=== PATIENT | male | born 1995 | race American Indian/Alaskan Native ===

== ENCOUNTER 2016-11-25 22:52 | Emergency (ER) | payer BC, OTHER ==
[2016-11-25 23:07] VITALS: BP 131/80
--- NOTE | 2016-11-25 23:15 | EDM.PDOC ---
ED HPI Trauma - General Chief Complaint: Lower Extremity Injury/Pain Stated Complaint: SHARP STABBING PAIN IN RIGHT HEEL Time Seen by Provider: 11/25/16 23:05 Source: Reports: Patient History Limitations: Reports: No limitations - History of Present Illness INITIAL COMMENTS - FREE TEXT/NARRATIVE: c/o pain to right foot since waking from nap today at 2pm, denied any injury to foot or ankle. Walking in new boots yesterday without socks. Walked in sandles earlier today. No swelling or open areas. Has not tried anything for pain. Occurred When: this afternoon Occurred Where: home Method of Injury: other (none) Pain/Injury Location: Reports: lower extremity, right Associated Symptoms: Reports: no other symptoms Allergies/ADRs: Allergies Penicillins Allergy (Verified 11/25/16 23:02) Swelling Home Medications: Ambulatory Orders . [No Known Home Meds] 08/13/13 [Confirmed 11/25/16] Past Medical History - Past Health History Medical/Surgical History: Denies Medical/Surgical History HEENT History: Reports: None Cardiovascular History: Reports: None Respiratory History: Reports: None Gastrointestinal History: Reports: None Genitourinary History: Reports: None Musculoskeletal History: Reports: None Neurological History: Reports: None Psychiatric History: Reports: None Endocrine/Metabolic History: Reports: None Hematologic History: Reports: None Immunologic History: Reports: None Oncologic (Cancer) History: Reports: None Dermatologic History: Reports: None Social & Family History - Tobacco Use Smoking Status *Q: Light Tobacco Smoker Years of Tobacco use: 2 Packs/Tins Daily: 0.2 - Caffeine Use Caffeine Use: Reports: Coffee, Energy drinks, Soda, Tea - Recreational Drug Use Recreational Drug Use: Yes Recreational Drug Type: Reports: Marijuana/Hashish Recreational Drug Use Frequency: Socially Review of Systems - Review of Systems Review Of Systems: ROS reveals no pertinent complaints other than HPI. Trauma Exam - Physical Exam Exam: See Below Exam Limited By: No limitations General Appearance: Reports: alert, no apparent distress Head: Reports: atraumatic, normocephalic Ears: Reports: normal external exam Nose: Reports: normal inspection Throat/Mouth: Reports: Normal inspection, Normal voice Neck: Reports: full range of motion Respiratory Exam: Reports: no respiratory distress, normal breath sounds Cardiovascular: Reports: normal peripheral pulses, regular rate, rhythm, no edema Extremities: Reports: no evidence of injury, normal range of motion, pain with movement (inversion lateral malleolus) Neurologic: Reports: no motor/sensory deficits, alert Skin: Reports: Normal color, Warm/dry Course - Vital Signs Last Recorded V/S: Last Vital Signs Temp 96.8 F 11/25/16 23:03 Pulse 98 11/25/16 23:03 Resp 16 11/25/16 23:03 BP 131/80 11/25/16 23:03 Pulse Ox 100 11/25/16 23:03 Departure - Departure Time of Disposition: 23:10 Disposition: Home, Self-Care 01 Condition: good Clinical Impression: Foot pain, right Instructions: Foot Sprain Forms: ED Department Discharge Additional Instructions: increase fluids solid boot or shoe darinel wrap for comfort alternate tylenol and ibuprofen every 4-6 hours as needed for discomfort follow up in clinic if continued pain greater than one week
== END 2016-11-25 23:17 | disposition home or self-care (01) ==
LOC: DL.ED 22:52
DX: M79.671 Pain in right foot (principal); F17.210 Nicotine dependence, cigarettes, uncomplicated; Z88.0 Allergy status to penicillin
CPT/HCPCS: 99282; 99283

== ENCOUNTER 2017-04-20 20:07 | Emergency (ER) | payer SELFPAY ==
[2017-04-20 20:47] VITALS: BP 130/84
[2017-04-20] MEDS ORDERED: Ketorolac 30 MG/ML SDV IM ONE (21:49)
[2017-04-20] MEDS ORDERED: Cyclobenzaprine 10 MG Tab PO ONE (21:49)
--- NOTE | 2017-04-20 21:54 | EDM.PDOC ---
ED HPI GENERAL MEDICAL PROBLEM - General Chief Complaint: Back Pain or Injury Stated Complaint: BACK/SIDE SEVERE PAINS, [id number] Time Seen by Provider: 04/20/17 20:45 Source of Information: Reports: Patient History Limitations: Reports: No Limitations - History of Present Illness INITIAL COMMENTS - FREE TEXT/NARRATIVE: c/o low back pain radiating to right buttock. Noticed on awakening this am. States laid in bed all day. Has not tried anything for pain. Denied hx of back problems, no injury. No change in activity recently Onset: Today Duration: Constant Location: Reports: Back Quality: Reports: Ache, Burning Severity: Moderate Improves with: Reports: Rest Worsens with: Reports: Movement Associated Symptoms: Reports: No Other Symptoms Treatments BOTTOM TURNER: Reports: Other (see below) Other Treatments BOTTOM TURNER: states none Right Flank Pain Score (Numeric/FACES): 7 - Related Data Allergies Allergy/AdvReac Type Severity Reaction Status Date / Time Penicillins Allergy Swelling Verified 04/20/17 20:47 Home Meds: Home Meds . [No Known Home Meds] 08/13/13 [History] Past Medical History - Past Health History Medical/Surgical History: Denies Medical/Surgical History HEENT History: Reports: None Cardiovascular History: Reports: None Respiratory History: Reports: None Gastrointestinal History: Reports: None Genitourinary History: Reports: None Musculoskeletal History: Reports: None Neurological History: Reports: None Psychiatric History: Reports: None Endocrine/Metabolic History: Reports: None Hematologic History: Reports: None Immunologic History: Reports: None Oncologic (Cancer) History: Reports: None Dermatologic History: Reports: None Social & Family History - Family History Family Medical History: Noncontributory - Tobacco Use Smoking Status *Q: Light Tobacco Smoker Years of Tobacco use: 4 Packs/Tins Daily: 0.1 - Caffeine Use Caffeine Use: Reports: Coffee, Energy Drinks, Soda, Tea - Recreational Drug Use Recreational Drug Use: Yes Recreational Drug Type: Reports: Marijuana/Hashish Recreational Drug Use Frequency: Socially ED ROS GENERAL - Review of Systems Review Of Systems: See Below Constitutional: Reports: No Symptoms HEENT: Reports: No Symptoms Respiratory: Reports: No Symptoms GI/Abdominal: Reports: No Symptoms : Reports: No Symptoms Musculoskeletal: Reports: Back Pain. Denies: Leg Pain Skin: Reports: No Symptoms Neurological: Reports: No Symptoms ED EXAM,LOWER BACK PAIN/INJURY - Physical Exam Exam: See Below Exam Limited By: No Limitations General Appearance: Alert, Mild Distress Eye Exam: Bilateral Eye: EOMI Ears: Normal External Exam, Normal TMs Throat/Mouth: Normal Inspection, Normal Lips, Normal Teeth Head: Atraumatic, Normocephalic Neck: Normal Inspection Respiratory/Chest: No Respiratory Distress, Lungs Clear, Normal Breath Sounds Cardiovascular: Normal Peripheral Pulses, Regular Rate, Rhythm GI/Abdominal: Normal Bowel Sounds, Non-Tender Back Exam: Paraspinal Tenderness (right lower), Other (Pain with standing, radiation to buttock increased when attemmpting to statnd upright). No: CVA Tenderness (L), CVA Tenderness (R), Vertebral Tenderness Extremities: Normal Inspection, Normal Range of Motion Neurological: Alert, No Motor/Sensory Deficits, Oriented x 3, Straight Leg Raise (R). No: Saddle Anesthesia Psychiatric: Normal Affect, Normal Mood Skin Exam: Warm, Dry, Intact, Normal Color Course - Vital Signs Last Recorded V/S: Last Vital Signs Temp 99.6 F 04/20/17 20:44 Pulse 90 04/20/17 20:44 Resp 18 04/20/17 20:44 BP 130/84 04/20/17 20:44 Pulse Ox 99 04/20/17 20:44 - Orders/Labs/Meds Labs: Laboratory Tests 04/20/17 Range/Units 20:40 Urine Color Yellow (YELLOW) Urine Appearance Slightly cloudy (CLEAR) Urine pH 6.0 (5.0-9.0) Ur Specific [place] 1.020 (1.005-1.030) Urine Protein Negative (NEGATIVE) Urine Glucose (UA) Negative (NEGATIVE) Urine Ketones Negative (NEGATIVE) Urine Occult Blood Negative (NEGATIVE) Urine Nitrite Negative (NEGATIVE) Urine Bilirubin Negative (NEGATIVE) Urine Urobilinogen 0.2 (0.2-1.0) mg/dL Ur Leukocyte Esterase Trace H (NEGATIVE) Urine RBC 0-5 /HPF Urine WBC 20-30 H (0-5/HPF) /HPF Ur Epithelial Cells Few /HPF Urine Bacteria Few (0-FEW/HPF) /HPF Meds: Medications Discontinued Medications Generic Name Dose Route Start Last Admin Trade Name Freq PRN Reason Stop Dose Admin Cyclobenzaprine HCl 10 mg 04/20/17 21:49 04/20/17 21:54 Flexeril PO 04/20/17 21:50 10 mg ONETIME ONE Administration Ketorolac Tromethamine 30 mg 04/20/17 21:49 04/20/17 21:54 Toradol IM 04/20/17 21:50 30 mg ONETIME ONE Administration Departure - Departure Time of Disposition: 21:54 Disposition: Home, Self-Care 01 Condition: Good Clinical Impression: Back pain Qualifiers: Back pain location: low back pain Chronicity: acute Back pain laterality: right Sciatica presence: with sciatica Sciatica laterality: sciatica of right side Qualified Code(s): M54.41 - Lumbago with sciatica, right side - Discharge Information Instructions: Back Pain, Adult, [id number] Referrals: PCP,None [Primary Care Provider] - Forms: ED Department Discharge Additional Instructions: Ibuprofen 600mg every 6 hours as needed for back pain flexeril 10mg one every 8 hours as needed for back spasm clinic follow up if not improving ice to low bck area 15minutes every 3 hours
== END 2017-04-20 22:27 | disposition home or self-care (01) ==
LOC: DL.ED 20:07
DX: M54.41 Lumbago with sciatica, right side (principal); F17.210 Nicotine dependence, cigarettes, uncomplicated; Z88.0 Allergy status to penicillin
CPT/HCPCS: 81001; 96372; 99283; A9270; J1885

== ENCOUNTER 2017-09-21 17:16 | Emergency (ER) | payer OTHER ==
[2017-09-21 17:29] VITALS: BP 141/80
[2017-09-21] MEDS ORDERED: Sodium Chloride 0.9% 10 ML Syringe FLUSH PRN (17:43)
[2017-09-21] MEDS ORDERED: Lidocaine 1% 30 ML SDV INJECT ONE (17:44)
[2017-09-21] MEDS ORDERED: Vancomycin 1.5 GM in Sodium Chloride 0.9% 500 ML IV ONE (17:45)
[2017-09-21] MEDS ORDERED: diphenhydrAMINE 50 MG/ML SDV IVPUSH ONE (17:46)
[2017-09-21] MEDS ORDERED: HYDROmorphone 1 MG/ML Syringe IVPUSH ONE (17:46)
[2017-09-21] MEDS ORDERED: Vancomycin 1 GM AdvVial ONE ×2 (17:55→17:56)
--- NOTE | 2017-09-21 19:29 | EDM.PDOC ---
Scribed by Suri Casiano 09/21/[id number] for Dani Little MD ED HPI GENERAL MEDICAL PROBLEM - General Chief Complaint: Skin Complaint Stated Complaint: [id number] BOIL ON FACE Time Seen by Provider: 09/21/17 17:40 Source of Information: Reports: Patient, RN, RN Notes Reviewed History Limitations: Reports: No Limitations - History of Present Illness INITIAL COMMENTS - FREE TEXT/NARRATIVE: Patient complains of painful swollen "boil" to the left face just inferior and anterior to the ear. He thought it was a pimple 2 days ago and squeezed it. Today he woke up with pain and swelling and realized it was becoming an abscess. Denies fever or chills. Location: Reports: Face Quality: Reports: Ache Severity: Severe Improves with: Reports: None Worsens with: Reports: None Associated Symptoms: Reports: No Other Symptoms Left Face Pain Score (Numeric/FACES): 7 - Related Data Allergies Allergy/AdvReac Type Severity Reaction Status Date / Time Penicillins Allergy Swelling Verified 09/21/17 17:29 Home Meds: Home Meds . [No Known Home Meds] 08/13/13 [History] Past Medical History - Past Health History Medical/Surgical History: Denies Medical/Surgical History HEENT History: Reports: Impaired Vision Cardiovascular History: Reports: None Respiratory History: Reports: None Gastrointestinal History: Reports: None Genitourinary History: Reports: None Musculoskeletal History: Reports: None Neurological History: Reports: None Psychiatric History: Reports: None Endocrine/Metabolic History: Reports: None Hematologic History: Reports: None Immunologic History: Reports: None Oncologic (Cancer) History: Reports: None Dermatologic History: Reports: None Other Dermatologic History: history of boil to right bicep Social & Family History - Family History Family Medical History: Noncontributory - Tobacco Use Smoking Status *Q: Current Every Day Smoker Years of Tobacco use: 1 Packs/Tins Daily: 0.2 Second Hand Smoke Exposure: Yes - Caffeine Use Caffeine Use: Reports: Coffee, Energy Drinks, Soda, Tea - Recreational Drug Use Recreational Drug Use: Yes Drug Use in Last 12 Months: Yes Recreational Drug Type: Reports: Marijuana/Hashish Recreational Drug Use Frequency: Daily - Living Situation & Occupation Living situation: Reports: with Family ED ROS GENERAL - Review of Systems Review Of Systems: ROS reveals no pertinent complaints other than HPI. ED EXAM, SKIN/RASH Exam: See Below Exam Limited By: No Limitations General Appearance: Alert, WD/WN, No Apparent Distress Eye Exam: Bilateral Eye: Normal Inspection Ears: Normal External Exam, Normal Canal, Hearing Grossly Normal, Normal TMs Nose: Normal Inspection, Normal Mucosa, No Blood Throat/Mouth: Normal Inspection, Normal Lips, Normal Teeth, Normal Gums, Normal Oropharynx, Normal Voice, No Airway Compromise Head: Other (left preauricular face with a 4cm acutely tender erythematous fluctuant abscess with no spontaneous drainage. ) Neck: Other (left cervical lymphadenopqathy. ) Respiratory/Chest: No Respiratory Distress, Lungs Clear, Normal Breath Sounds, No Accessory Muscle Use, Chest Non-Tender Cardiovascular: Regular Rate, Rhythm Neurological: Alert, Oriented, No Motor/Sensory Deficits Psychiatric: Normal Affect, Normal Mood ED SKIN PROCEDURES - I&D Site: Left face Skin Prep: Chlorhexidine (Hibiciens), Saline Local Anesthesia: Lidocaine: 1% Plain Local Anesthetic Volume: Other (10cc) Area Incised With: 11 Blade Drainage: Purulent, Bloody, Moderate Amount Probed to Break Up Loculations: Yes Packed With: 1/2 in. Iodoform Sterile Dressinx4(s) Complications: No Course - Vital Signs Last Recorded V/S: Last Vital Signs Temp 37.7 C 09/21/17 17:24 Pulse 78 09/21/17 17:24 Resp 16 09/21/17 17:24 BP 141/80 H 09/21/17 17:24 Pulse Ox 100 09/21/17 17:24 - Orders/Labs/Meds Orders: Active Orders 24 hr Category Date Time Status Peripheral IV Care [RC] . DIRECTED Care 09/21/17 17:43 Active CULTURE WOUND [RM] Stat Lab 09/21/17 19:06 Received Sodium Chloride 0.9% [Saline Flush] Med 09/21/17 17:43 Active 10 ml FLUSH ASDIRECTED PRN Peripheral IV Insertion Adult [OM.PC] Stat Oth 09/21/17 17:43 Ordered Medication Orders Sodium Chloride (Saline Flush) 10 ml FLUSH ASDIRECTED PRN PRN Reason: Keep Vein Open Last Admin: 09/21/17 17:56 Dose: 10 ml Labs: Laboratory Tests 09/21/17 09/21/17 Range/Units 17:50 17:50 WBC 9.7 (5.0-10.0) 10^3/uL RBC 5.22 (4.6-6.2) 10^6/uL Hgb 15.0 (14.0-18.0) g/dL Hct 45.6 (40.0-54.0) % MCV 87.4 (80-100) fL MCH 28.7 (27.0-34.0) pg MCHC 32.9 L (33.0-35.0) g/dL Plt Count 212 (150-450) 10^3/uL Neut % (Auto) 62.4 (42.2-75.2) % Lymph % (Auto) 22.5 (20.5-50.1) % [place] % (Auto) 9.2 H (2-8) % Eos % (Auto) 5.4 H (1.0-3.0) % Baso % (Auto) 0.5 (0.0-1.0) % C-Reactive Protein 2.1 H (0.0-1.3) mg/dL Meds: Medications Generic Name Dose Route Start Last Admin Trade Name Freq PRN Reason Stop Dose Admin Sodium Chloride 10 ml 09/21/17 17:43 09/21/17 17:56 Saline Flush FLUSH 10 ml ASDIRECTED PRN Administration Keep Vein Open Discontinued Medications Generic Name Dose Route Start Last Admin Trade Name Freq PRN Reason Stop Dose Admin Diphenhydramine HCl 25 mg 09/21/17 17:46 09/21/17 17:59 Benadryl IVPUSH 09/21/17 17:47 25 mg ONETIME ONE Administration Hydromorphone HCl 1 mg 09/21/17 17:46 09/21/17 18:02 Dilaudid IVPUSH 09/21/17 17:47 1 mg ONETIME ONE Administration Vancomycin HCl 1.5 gm/ Sodium 500 mls @ 334 mls/hr 09/21/17 17:45 09/21/17 18 :11 Chloride IV 09/21/17 19:14 334 mls/hr ONETIME ONE Administration Lidocaine HCl 30 ml 09/21/17 17:44 09/21/17 18:05 Xylocaine-Mpf 1% INJECT 09/21/17 17:45 30 ml ONETIME ONE Administration Vancomycin HCl Confirm 09/21/17 17:55 02/12/18 18:11 Vancocin Administered 09/21/17 17:56 Not Given Dose 1 gm .ROUTE .STK-MED ONE Vancomycin HCl Confirm 09/21/17 17:56 09/21/17 18:10 Vancocin Administered 09/21/17 17:57 Not Given Dose 1 gm .ROUTE .STK-MED ONE Departure - Departure Time of Disposition: 19:20 Disposition: Home, Self-Care 01 Condition: Fair Clinical Impression: Abscess of face - Discharge Information Instructions: Incision and Drainage, Care After, Abscess, [id number] Forms: ED Department Discharge Additional Instructions: Rx: Clindamycin 300mg Rx: Doxycycline 100mg Rx: Bactroban ointment 2% Rx: [place] 5mg/325mg *Do not drive while under the influence of this medication. Change dressing twice a day, and any time it becomes soaked or dirty. May shower with dressing off. Follow up in clinic in 1 to 2 days for recheck. Return to ER if worse at any time. - My Orders Last 24 Hours: My Active Orders 09/21/17 17:43 Peripheral IV Care [RC] . DIRECTED Sodium Chloride 0.9% [Saline Flush] 10 ml FLUSH ASDIRECTED PRN Peripheral IV Insertion Adult [OM.PC] Stat 09/21/17 19:06 CULTURE WOUND [RM] Stat - Assessment/Plan Last 24 Hours: My Active Orders 09/21/17 17:43 Peripheral IV Care [RC] . DIRECTED Sodium Chloride 0.9% [Saline Flush] 10 ml FLUSH ASDIRECTED PRN Peripheral IV Insertion Adult [OM.PC] Stat 09/21/17 19:06 CULTURE WOUND [RM] Stat I have read and agree with the documentation that has been completed regarding this visit. By signing this record, I attest that the documentation was completed in my physical presence and is an accurate record of the encounter.
== END 2017-09-21 19:38 | disposition home or self-care (01) ==
LOC: DL.ED 17:16
DX: L02.01 Cutaneous abscess of face (principal); F17.210 Nicotine dependence, cigarettes, uncomplicated; Z88.0 Allergy status to penicillin
CPT/HCPCS: 10061; 36415; 85025; 86140; 87070; 96365; 96375; 99283; J1170; J1200; J3370; J7040; J7050; 10060

== ENCOUNTER 2018-04-03 18:39 | Emergency (ER) | payer MEDICAID, OTHER ==
[2018-04-03] MEDS ORDERED: Clindamycin HCl 150 MG Cap PO ONE (19:02)
[2018-04-03] MEDS ORDERED: Acetaminophen/HYDROcodone 325-10 MG Tab PO ONE (19:02)
[2018-04-03 19:05] VITALS: BP 142/74
--- NOTE | 2018-04-03 19:08 | EDM.PDOC ---
ED HPI GENERAL MEDICAL PROBLEM - General Chief Complaint: Skin Complaint Stated Complaint: ? [id number] Time Seen by Provider: 04/03/18 19:03 Source of Information: Reports: Patient History Limitations: Reports: No Limitations - History of Present Illness INITIAL COMMENTS - FREE TEXT/NARRATIVE: c/o recurrent h/o left axilla abscess - Related Data Allergies Allergy/AdvReac Type Severity Reaction Status Date / Time Penicillins Allergy Swelling Verified 04/03/18 18:46 Home Meds: Home Meds . [No Known Home Meds] 08/13/13 [History] Past Medical History - Past Health History Medical/Surgical History: Denies Medical/Surgical History HEENT History: Reports: Impaired Vision Cardiovascular History: Reports: None Respiratory History: Reports: None Gastrointestinal History: Reports: None Genitourinary History: Reports: None Musculoskeletal History: Reports: None Neurological History: Reports: None Psychiatric History: Reports: None Endocrine/Metabolic History: Reports: None Hematologic History: Reports: None Immunologic History: Reports: None Oncologic (Cancer) History: Reports: None Dermatologic History: Reports: None Other Dermatologic History: history of boil to right bicep Social & Family History - Family History Family Medical History: Noncontributory - Caffeine Use Caffeine Use: Reports: Coffee, Energy Drinks, Soda, Tea - Living Situation & Occupation Living situation: Reports: with Family ED ROS GENERAL - Review of Systems Review Of Systems: ROS reveals no pertinent complaints other than HPI. ED EXAM, SKIN/RASH Exam: See Below Exam Limited By: No Limitations General Appearance: Alert, WD/WN, Mild Distress, Other Ears: Hearing Grossly Normal Throat/Mouth: Normal Voice, No Airway Compromise Head: Atraumatic Neck: Non-Tender, Full Range of Motion Respiratory/Chest: No Respiratory Distress Cardiovascular: Regular Rate, Rhythm GI/Abdominal: Soft, Non-Tender Extremities: Other (left axilla abscess firm tender non fluctuant without lymphangitis) Neurological: Alert, Oriented, Normal Cognition, Normal Gait, No Motor/Sensory Deficits Psychiatric: Tearful Skin: Warm, Dry, Normal Color Location, Skin: Upper Extremity, Left Associated features: Tenderness, Swelling, Inflammation. No: Lymphangitis ED SKIN PROCEDURES - I&D Site: left axilla Skin Prep: Providone-Iodine (Betadine) Local Anesthesia: Lidocaine: Other (ethyl CL spray) Area Incised With: Needle Drainage: No Drainage Probed to Break Up Loculations: No Packed With: None Sterile Dressing: None Complications: No Course - Orders/Labs/Meds Orders: Active Orders 24 hr Category Date Time Status Acetaminophen/HYDROcodone [[place] 325-10 MG] Med 04/03/18 19:02 Once 1 tab PO ONETIME ONE Clindamycin HCl [Cleocin] Med 04/03/18 19:02 Once 150 mg PO ONETIME ONE Departure - Departure Time of Disposition: 19:07 Disposition: Home, Self-Care 01 Condition: Good Clinical Impression: Abscess - Discharge Information Instructions: Skin Abscess Additional Instructions: 1) keep area clean and dry 2) follow up at clinic Thursday 3) take tylenol or motrin as needed for discomfort rx given; clindamycin 150mg qid x 40 - My Orders Last 24 Hours: My Active Orders 04/03/18 19:02 Acetaminophen/HYDROcodone [[place] 325-10 MG] 1 tab PO ONETIME ONE Clindamycin HCl [Cleocin] 150 mg PO ONETIME ONE - Assessment/Plan Last 24 Hours: My Active Orders 04/03/18 19:02 Acetaminophen/HYDROcodone [[place] 325-10 MG] 1 tab PO ONETIME ONE Clindamycin HCl [Cleocin] 150 mg PO ONETIME ONE
== END 2018-04-03 19:19 | disposition home or self-care (01) ==
LOC: DL.ED 18:39
DX: L02.412 Cutaneous abscess of left axilla (principal); Z88.0 Allergy status to penicillin
CPT/HCPCS: 99283; A9270

== ENCOUNTER 2020-04-17 19:34 | Emergency (ER) | payer MEDICAID, OTHER ==
[2020-04-17] MEDS ORDERED: Iopamidol 612 MG/ML 100 ML Bottle IVPUSH ONE (19:41)
[2020-04-17] MEDS ORDERED: Sodium Chloride 0.9% 10 ML Syringe FLUSH PRN (19:42)
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
[2020-04-17 20:34] LABS: ANION GAP 18.7 mEq/L (7-13); CHLORIDE,CL 105 mmol/L (98-107); SODIUM,NA 142 mmol/L (136-145)
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
[2020-04-17] MEDS ORDERED: Acetaminophen 325 MG Tab PO ONE (21:06)
== END 2020-04-17 21:24 | disposition home or self-care (01) ==
LOC: DL.ED 19:34
DX: S06.0X1A Concussion with loss of consciousness of 30 minutes or less, initial encounter (principal); S00.83XA Contusion of other part of head, initial encounter; S00.01XA Abrasion of scalp, initial encounter; R07.81 Pleurodynia; Z88.0 Allergy status to penicillin; Y04.0XXA Assault by unarmed brawl or fight, initial encounter
CPT/HCPCS: 36415; 70450; 70486; 71260; 72125; 74177; 80053; 80305; 80307; 81001; 85025; 99285; A9270; Q9967

== ENCOUNTER 2022-06-08 23:38 | Emergency (ER) | payer MEDICAID ==
[2022-06-08] MEDS ORDERED: Sodium Chloride 0.9% 10 ML Syringe FLUSH PRN (23:49)
[2022-06-08 23:51] VITALS: BP 163/95; PULSE 75
[2022-06-09] MEDS: diphenhydrAMINE 50 MG/ML SDV IVPUSH ONE (00:18)
[2022-06-09] MEDS: Sodium Chloride 0.9% 1,000 ML IV ONE (00:19)
[2022-06-09 00:48] LABS: ANION GAP 13.7 mEq/L (7-13)
== END 2022-06-09 01:30 | disposition home or self-care (01) ==
LOC: DL.ED 23:38
DX: R20.0 Anesthesia of skin (principal); T50.995A Adverse effect of other drugs, medicaments and biological substances, initial encounter; Z88.0 Allergy status to penicillin; Z72.0 Tobacco use
CPT/HCPCS: 36415; 80053; 85025; 96374; 99284; J1200; J7030

== ENCOUNTER 2025-03-13 12:06 | Emergency (ER) | payer MEDICAID, OTHER ==
[2025-03-13 12:24] VITALS: BP 145/94; PULSE 76
[2025-03-13 12:56] LABS: BASOPHILS PERCENT AUTO 0.4 % (0.0-1.0); EOSINOPHILS PERCENT AUTO 1.0 % (1.0-3.0); LYMPHOCYTES PERCENT AUTO 23.4 % (20.5-50.1); MONOCYTES PERCENT AUTO 7.6 % (2-8); NEUTROPHILS PERCENT AUTO 67.6 % (42.2-75.2); PLATELET COUNT,PLT 218 10^3/uL (150-450); RED BLOOD CELL COUNT 5.50 10^6/uL (4.6-6.2); WHITE BLOOD CELL COUNT,WBC 7.2 10^3/uL (5.0-10.0)
[2025-03-13 13:20] LABS: APPEARANCE,URINE SLIGHTLY CLOUDY (CLEAR); GLUCOSE,URINE NEGATIVE (NEGATIVE); OCCULT BLOOD,URINE NEGATIVE (NEGATIVE)
[2025-03-13 13:25] LABS: A/G RATIO 0.8; ALANINE AMINOTRANSFERASE,ALT 61 U/L (16-63); ASPARTATE AMNIOTRANSFERASE,AST 25 U/L (15-37); BILIRUBIN TOTAL 0.8 mg/dL (0.2-1.0); BLOOD UREA NITROGEN,BUN 12 mg/dL (7-18); CARBON DIOXIDE,CO2 29 mmol/L (21-32); CHLORIDE,CL 100 mmol/L (98-107); CREATININE 0.99 mg/dL (0.70-1.30); EST CRCL DRUG DOSING (CG) 120.84 mL/min; ESTIMATED GFR 106 mL/min (>=60); ETHANOL BLOOD MEDICAL < 3 mg/dL (0); GLUCOSE RANDOM 87 mg/dL (70-99); POTASSIUM,K 4.2 mmol/L (3.5-5.1); PROTEIN TOTAL,TP 8.5 g/dL (6.4-8.2); SODIUM,NA 137 mmol/L (136-145); TSH ULTRASENSITIVE 5.54 uIU/mL (0.36-3.74)
[2025-03-13 13:25] LABS: AMPHETAMINES,URINE NEGATIVE (NEGATIVE); BARBITURATES,URINE NEGATIVE (NEGATIVE); MDMA (ECSTASY), URINE NEGATIVE (NEGATIVE); METHAMPHETAMINES,URINE POSITIVE (NEGATIVE); OPIATES,URINE NEGATIVE (NEGATIVE); OXYCODONE,URINE NEGATIVE (NEGATIVE); PHENCYCLIDINE,URINE NEGATIVE (NEGATIVE); TCA,URINE NEGATIVE (NEGATIVE)
== END 2025-03-13 16:25 ==
LOC: DL.ED 12:06
DX: F15.10 Other stimulant abuse, uncomplicated (principal); R45.851 Suicidal ideations; Z88.0 Allergy status to penicillin
CPT/HCPCS: 36415; 80053; 80143; 80179; 80305-QW; 80307; 81003; 84443; 85025; 93005; 99285

== ENCOUNTER 2025-06-26 22:04 | Emergency (ER) | payer OTHER ==
[2025-06-26 22:22] LABS: BASOPHILS PERCENT AUTO 0.4 % (0.0-1.0); EOSINOPHILS PERCENT AUTO 2.6 % (1.0-3.0); LYMPHOCYTES PERCENT AUTO 21.9 % (20.5-50.1); MONOCYTES PERCENT AUTO 11.0 % (2-8); NEUTROPHILS PERCENT AUTO 64.1 % (42.2-75.2); PLATELET COUNT,PLT 200 10^3/uL (150-450); RED BLOOD CELL COUNT 5.56 10^6/uL (4.6-6.2); WHITE BLOOD CELL COUNT,WBC 7.6 10^3/uL (5.0-10.0)
[2025-06-26 22:42] LABS: A/G RATIO 0.8; ALANINE AMINOTRANSFERASE,ALT 44 U/L (16-63); ASPARTATE AMNIOTRANSFERASE,AST 15 U/L (15-37); BILIRUBIN TOTAL 0.5 mg/dL (0.2-1.0); BLOOD UREA NITROGEN,BUN 12 mg/dL (7-18); CARBON DIOXIDE,CO2 27 mmol/L (21-32); CHLORIDE,CL 103 mmol/L (98-107); CREATININE 1.16 mg/dL (0.70-1.30); EST CRCL DRUG DOSING (CG) 108.26 mL/min; ESTIMATED GFR 87 mL/min (>=60); ETHANOL BLOOD MEDICAL < 3 mg/dL (0); GLUCOSE RANDOM 105 mg/dL (70-99); POTASSIUM,K 4.1 mmol/L (3.5-5.1); PROTEIN TOTAL,TP 8.1 g/dL (6.4-8.2); SODIUM,NA 140 mmol/L (136-145)
[2025-06-26 23:07] LABS: APPEARANCE,URINE CLEAR (CLEAR); GLUCOSE,URINE NEGATIVE (NEGATIVE); OCCULT BLOOD,URINE NEGATIVE (NEGATIVE)
[2025-06-26 23:11] LABS: AMPHETAMINES,URINE POSITIVE (NEGATIVE); BARBITURATES,URINE NEGATIVE (NEGATIVE); MDMA (ECSTASY), URINE NEGATIVE (NEGATIVE); METHAMPHETAMINES,URINE POSITIVE (NEGATIVE); OPIATES,URINE NEGATIVE (NEGATIVE); OXYCODONE,URINE NEGATIVE (NEGATIVE); PHENCYCLIDINE,URINE NEGATIVE (NEGATIVE); TCA,URINE NEGATIVE (NEGATIVE)
[2025-06-26 23:16] LABS: EPITHELIAL CELLS,URINE OCCASIONAL /HPF (NOT SEEN)
[2025-06-26 23:47] VITALS: BP 142/78; PULSE 73
== END 2025-06-26 23:55 | disposition home or self-care (01) ==
LOC: DL.ED 22:04
DX: F15.129 Other stimulant abuse with intoxication, unspecified (principal); Z88.0 Allergy status to penicillin
CPT/HCPCS: 36415; 80053; 80305-QW; 80307; 81001; 83690; 83735; 85025; 99284; 99285